=== PATIENT | male | born 1960 | race Caucasian/White ===

== ENCOUNTER 2016-08-31 08:53 | Emergency (ER) | payer OTHER ==
[2016-08-31] MEDS ORDERED: HYDROcodone/APAP 5/325 MG 1 TAB TABLET PO ONE (09:18)
--- NOTE | 2016-08-31 10:28 | ER PHYSICIAN DOCUMENTATION ---
Physician Documentation [facility] Name:Hemanth Escamilla Age:56 yrs Sex:Male :1960 Arrival Date:08/31/2016 Time:08:53 Bed6 Private MD: Elias Cooper Disposition: 08/31/16 10:18 Discharged to Home/Self Care. Impression: Knee Contusion. - Condition is Good. - Discharge Instructions: CONTUSION, Lower Extremity, CONTUSION, Soft Tissue. - Prescriptions for Clemons 5- 325 mg Oral Tablet - take 1 tablet by ORAL route every 6 hours As needed; 20 tablet. Zofran 4 mg Oral Tablet - take 1-2 tablet by ORAL route every 4-6 hours As needed; 10 tablet. - Medical Reconciliation form form. - Follow up: Private Physician; When: 4- 6 days; Reason: Recheck today's complaints, Continuance of care. - Problem is new. - Symptoms have improved. HPI: 08/31 09:37 This 56 yrs old Male presents to ER via Private Vehicle with complaints of tl1 Knee swelling and calf pain - Left. 09:37 The patient presents with an injury. The patient has not experienced similar symptoms tl1 in the past. 09:41 He says the pain did not come on until about 20 minutes after this incident, when he tl1 got to the parking lot. He had a lot of discomfort that evening and slept poorly all last night, with pain in the 7-8 range. The pain seemed to be less when he was standing up or when seated with his knees flexed at 90 degrees, and worse if he was supine or in the lateral recumbent position with is legs straight or just slightly flexed. Now the pain is mostly an aching sensation diffusely over the lateral aspect of his left calf, still fairly severe.. Historical: - Allergies: PENICILLINS; - Home Meds: 1. None - PMHx: None; - PSHx: rhinoplasty; - Tetanus: < 10 years. - Ebola Screening: : Patient negative for fever greater than or equal to 101.5 degrees Fahrenheit, and additional compatible Ebola Virus Disease symptoms. Patient denies exposure to infectious person. Patient denies travel to an Ebola-affected area in the 21 days before illness onset. No symptoms or risks identified at this time. . - Immunization history: Flu Vaccine < 1 year. - Social history: Smoking status: Patient states was never smoker of tobacco. ROS: 09:47 MS/extremity: Positive for injury or acute deformity, pain, swelling, of the lateral tl1 aspect of left calf, posterior aspect of left knee and left knee. Exam: 09:00 Constitutional: The patient appears in no acute distress, alert, awake, comfortable, tl1 well developed, well hydrated, well groomed, well nourished. 09:00 Neck: ROM/movement: is normal. tl1 09:00 Cardiovascular: Rate: normal. 09:00 Respiratory: Respirations: normal. 09:00 Musculoskeletal/extremity: Extremities: grossly normal except: noted in the lateral aspect of left calf and left knee: ROM: full active range of motion, in the left knee, limited active range of motion, in the left knee, Circulation is intact in all extremities. Sensation intact. Joints: All joints are normal except the left knee displays effusion, small effusion. Mild TTP over distal quadriceps tendon. patella NTTP. Anterior joint line NTTP. NO ligamentous laxity. Mild TTP over fibular head and proximal posterolateral gastroc. Isidra demonstrated no click, but extension of the knee with the foot externally rotated causes severe pain in the area of the fibular head.. Vital Signs: 09:01 BP 136 / 87 RA Sitting (auto/reg); Pulse 85 LA; Resp 20 S; Temp 98.2(O); Pulse Ox 94% em3 on R/A; Weight 72.57 kg (R); Height 5 ft. 10 in. (177.80 cm) (R); Pain 6/10; 10:25 Pulse 72; Resp 16; Pulse Ox 92% on R/A; Pain 4/10; tg 09:01 Body Mass Index 22.96 (72.57 kg, 177.80 cm) em3 MDM: 09:08 Patient medically screened. tl1 10:00 Differential diagnosis: closed fracture, contusion, strain, sprain, neuropraxia. Data tl1 reviewed: vital signs, nurses notes, radiologic studies, plain films, and as a result, I will discharge patient. Test interpretation: by ED physician or midlevel provider: plain radiologic studies. Counseling: I had a detailed discussion with the patient and/or guardian regarding: the historical points, exam findings, and any diagnostic results supporting the discharge/admit diagnosis, radiology results, the need for outpatient follow up, a orthopedic surgeon. Response to treatment: the patient's symptoms have mildly improved after treatment. Special discussion: Based on the history and exam findings, there is no indication for further emergent testing or inpatient evaluation. I discussed with the patient/guardian the need to see the orthopedic surgeon for further evaluation of the symptoms. Presentation somewhat odd. wonder if he could have tweaked his peroneal nerve. He seems to have a small effusion, so a meniscus injury is a possibility. No ligamentous instability or apparent laxity.. 08/31 09:10 Order name: Ice Packs; Complete Time: 09:11 tg Dispensed Medications: 09:11 Drug: HYDROcodone-acetaminophen 5 mg-325 mg 1 tabs; Route: PO; tg 10:20 Follow up: Response: Pain is decreased tg Signatures: Ellis Antoine RN RN tg Elias Oreilly MD MD tl1
--- NOTE | 2016-08-31 10:28 | ER NURSING DOCUMENTATION ---
Nurse's Notes [facility] Name:Hemanth Escamilla Age:56 yrs Sex:Male :1960 Arrival Date:08/31/2016 Time:08:53 Bed6 Private MD: Diagnosis:Knee Contusion Presentation: 08/31 08:58 Transition of care: patient was not received from another setting of care. tg 08:58 Acuity: PETER 4 tg 08:58 Method Of Arrival: Private Vehicle tg 09:01 Presenting complaint: Patient states: Cross country skiing yesterday, "took a knee" (on tg right side), which put a lot of strain on left knee. Notified ED Physician of patient's arrival and CC Dr. Oreilly notified. Triage Assessment: 09:11 General: Appears uncomfortable, Behavior is cooperative. Pain: Complains of pain in tg lateral aspect of left calf, left knee and left davila Aggravated by increased activity, repositioning. Neuro: Level of Consciousness is awake, alert. Cardiovascular: Capillary refill. Respiratory: Respiratory effort is even, unlabored. Derm: Skin is pink, warm & dry. Musculoskeletal: Range of motion limited in left knee. Historical: - Allergies: PENICILLINS; - Home Meds: 1. None - PMHx: None; - PSHx: rhinoplasty; - Tetanus: < 10 years. - Ebola Screening: : Patient negative for fever greater than or equal to 101.5 degrees Fahrenheit, and additional compatible Ebola Virus Disease symptoms. Patient denies exposure to infectious person. Patient denies travel to an Ebola-affected area in the 21 days before illness onset. No symptoms or risks identified at this time. . - Immunization history: Flu Vaccine < 1 year. - Social history: Smoking status: Patient states was never smoker of tobacco. Screenin:12 Infectious Disease Risk Unable to Obtain. Abuse screen: Denies threats or abuse. Denies tg injuries from another. Nutritional screening: No deficits noted. Vital Signs: 09:01 BP 136 / 87 RA Sitting (auto/reg); Pulse 85 LA; Resp 20 S; Temp 98.2(O); Pulse Ox 94% em3 on R/A; Weight 72.57 kg (R); Height 5 ft. 10 in. (177.80 cm) (R); Pain 6/10; 10:25 Pulse 72; Resp 16; Pulse Ox 92% on R/A; Pain 4/10; tg 09:01 Body Mass Index 22.96 (72.57 kg, 177.80 cm) em3 ED Course: 08:56 Patient arrived in ED. em3 08:58 Triage completed. tg 09:04 Valuables Remains with patient Patient has correct armband on for positive em3 identification. Placed in gown. Bed in low position. Call light in reach. Side rails up X 1. Ice pack to injury. 09:08 Elias Oreilly MD is Attending Physician. tl1 09:10 Ellis Antoine, RN is Primary Nurse. tg 09:34 Port Xray Completed. hz Administered Medications: 09:11 Drug: HYDROcodone-acetaminophen 5 mg-325 mg 1 tabs; Route: PO; tg 10:20 Follow up: Response: Pain is decreased tg Outcome: 10:18 Discharge ordered by . tl1 10:25 Discharged to home ambulatory, with family. tg 10:25 Condition: stable 10:25 Discharge Assessment: Patient awake and alert. 10:25 Instructed on discharge instructions, follow up and referral plans. medication usage, Prescriptions given X 2. 10:27 Patient left the ED. tg Signatures: Ellis Antoine RN RN tg David Silva em3 Elias Oreilly MD MD 1 Chantelle Jaimes
--- NOTE | 2016-09-03 07:46 | RADIOLOGY REPORT ---
Three views of the left knee demonstrate no displaced fracture, dislocation or other bony abnormality. Minimal tricompartmental degenerative joint disease is noted. No other abnormality is seen. IMPRESSION: Minimal tricompartmental degenerative joint disease. No displaced injury is identified. If clinically indicated, further evaluation and/or follow -up may be of benefit. [facility] HOSPITALDottie
== END 2016-08-31 10:28 | disposition home or self-care (01) ==
LOC: ER 08:53
DX: S80.02XA Contusion of left knee, initial encounter (principal); M25.462 Effusion, left knee; V00.321A Fall from snow-skis, initial encounter
CPT/HCPCS: 99283